=== PATIENT | male | born 1955 | race Caucasian/White ===

== ENCOUNTER 2018-12-04 09:20 | Day surgery (SDC) | payer OTHER ==
[~2018-12-04] VITALS: Ht 162.6 cm; Wt 77.1 kg
[2018-12-04] MEDS ORDERED: LIDOCAINE 2% 100 MG/5 ML UJET TP ONE (12:31)
[2018-12-04] MEDS ORDERED: fentaNYL 0.05 MG/ML VIAL ONE (12:31)
[2018-12-04] MEDS ORDERED: fentaNYL 0.05 MG/ML VIAL IVP SCH (15:00)
== END 2018-12-04 13:55 | disposition home or self-care (01) ==
LOC: MDS 09:20 → MMU 09:21 → MDS 13:55
PROVIDERS: ATTEND Internal Medicine Gastroenterology
DX: Z12.11 Encounter for screening for malignant neoplasm of colon (principal); K57.30 Diverticulosis of large intestine without perforation or abscess without bleeding; E11.9 Type 2 diabetes mellitus without complications
CPT/HCPCS: 45378; J3010